=== PATIENT | male | born 1960 | race Caucasian/White ===

== ENCOUNTER → 2016-03-03 | Outpatient (CLI) | payer OTHER ==
[2016-03-03 07:21] LABS: ALBUMIN 3.6 GM/DL (3.2-5.2); ALBUMIN/GLOBULIN RATIO 1.16 (1.00-1.93); ALKALINE PHOSPHATASE 75 U/L (45-117); ALT/SGPT 50 U/L (12-78); ANION GAP 8 MEQ/L (8-16); AST/SGOT 32 U/L (15-37); BILIRUBIN,TOTAL 0.3 MG/DL (0.2-1.0); BLOOD UREA NITROGEN 13 MG/DL (7-18); CALCIUM LEVEL 8.5 MG/DL (8.5-10.1); CARBON DIOXIDE LEVEL 27 MEQ/L (21-32); CHLORIDE LEVEL 108 MEQ/L (98-107); CHOLESTEROL LEVEL 189 MG/DL (<200); CREATININE FOR GFR 0.96 MG/DL (0.70-1.30); GLOMERULAR FILTRATION RATE > 60.0 (>56); GLUCOSE, FASTING 159 MG/DL (70-105); POTASSIUM SERUM 4.2 MEQ/L (3.5-5.1); SODIUM LEVEL 143 MEQ/L (136-145); TOTAL PROTEIN 6.7 GM/DL (6.4-8.2); TRIGLYCERIDES LEVEL 247 MG/DL (<150)
== END ==
LOC: M LAB 06:08
PROVIDERS: ATTEND Family Medicine
DX: R73.01 Impaired fasting glucose (principal)

== ENCOUNTER → 2016-09-02 | Outpatient (CLI) | payer OTHER ==
[2016-09-02 07:26] LABS: ALBUMIN 3.6 GM/DL (3.2-5.2); ALBUMIN/GLOBULIN RATIO 1.06 (1.00-1.93); ALKALINE PHOSPHATASE 74 U/L (45-117); ALT/SGPT 38 U/L (12-78); ANION GAP 7 MEQ/L (8-16); AST/SGOT 24 U/L (15-37); BILIRUBIN,TOTAL 0.4 MG/DL (0.2-1.0); BLOOD UREA NITROGEN 13 MG/DL (7-18); CALCIUM LEVEL 8.9 MG/DL (8.5-10.1); CARBON DIOXIDE LEVEL 27 MEQ/L (21-32); CHLORIDE LEVEL 107 MEQ/L (98-107); CHOLESTEROL LEVEL 179 MG/DL (<200); CREATININE FOR GFR 0.98 MG/DL (0.70-1.30); GLOMERULAR FILTRATION RATE > 60.0 (>56); GLUCOSE, FASTING 158 MG/DL (70-105); POTASSIUM SERUM 4.1 MEQ/L (3.5-5.1); SODIUM LEVEL 141 MEQ/L (136-145); TRIGLYCERIDES LEVEL 368 MG/DL (<150)
== END ==
LOC: M LAB 06:08
PROVIDERS: ATTEND Family Medicine
DX: E78.5 Hyperlipidemia, unspecified (principal); R73.01 Impaired fasting glucose; R31.29 Other microscopic hematuria

== ENCOUNTER → 2017-02-01 | Outpatient (CLI) | payer OTHER ==
[2017-02-01 07:21] LABS: ALBUMIN 3.8 GM/DL (3.2-5.2); ALBUMIN/GLOBULIN RATIO 1.09 (1.00-1.93); ALKALINE PHOSPHATASE 72 U/L (45-117); ALT/SGPT 39 U/L (12-78); ANION GAP 7 MEQ/L (8-16); AST/SGOT 24 U/L (7-37); BILIRUBIN,TOTAL 0.3 MG/DL (0.2-1.0); BLOOD UREA NITROGEN 11 MG/DL (7-18); CALCIUM LEVEL 9.4 MG/DL (8.5-10.1); CARBON DIOXIDE LEVEL 28 MEQ/L (21-32); CHLORIDE LEVEL 108 MEQ/L (98-107); CREATININE FOR GFR 0.96 MG/DL (0.70-1.30); FREE T4 1.03 NG/DL (0.76-1.46); GLOMERULAR FILTRATION RATE > 60.0 (>56); GLUCOSE, FASTING 147 MG/DL (70-105); POTASSIUM SERUM 4.5 MEQ/L (3.5-5.1); SODIUM LEVEL 143 MEQ/L (136-145); TOTAL PROTEIN 7.3 GM/DL (6.4-8.2)
== END ==
LOC: M LAB 06:06
PROVIDERS: ATTEND Family Medicine
DX: I10 Essential (primary) hypertension (principal); E78.5 Hyperlipidemia, unspecified; R73.01 Impaired fasting glucose; Z12.5 Encounter for screening for malignant neoplasm of prostate
CPT/HCPCS: 36415; 80053; 83036; 84439; 84443; G0103

== ENCOUNTER 2017-03-22 07:19 | Emergency (ER) | payer OTHER ==
[2017-03-22] MEDS ORDERED: KETOROLAC 60 MG/2 ML VIAL (J1885) IM (07:45)
[2017-03-22] MEDS: KETOROLAC 30 MG/ML VIAL (J1885) IM (08:00)
== END 2017-03-22 08:46 | disposition home or self-care (01) ==
LOC: M ED 07:19
DX: M43.06 Spondylolysis, lumbar region (principal); M25.551 Pain in right hip; M54.5 Low back pain; F17.200 Nicotine dependence, unspecified, uncomplicated; E11.9 Type 2 diabetes mellitus without complications
CPT/HCPCS: J1885

== ENCOUNTER → 2017-04-29 | Outpatient (CLI) | payer OTHER | LOC: M RAD 10:53 | DX: M51.26 Other intervertebral disc displacement, lumbar region (principal); M51.27 Other intervertebral disc displacement, lumbosacral region; M48.061 Spinal stenosis, lumbar region without neurogenic claudication | CPT/HCPCS: 72148 ==

== ENCOUNTER → 2017-08-05 | Outpatient (REF) | payer OTHER ==
[2017-08-05 11:04] LABS: PLATELET COUNT, AUTOMATED 253 10^3/uL (150-450)
[2017-08-05 11:10] LABS: COLLAGEN EPINEPHRINE 97 SECONDS (74-162)
[2017-08-05 11:16] LABS: INR 0.94; PROTHROMBIN TIME 12.6 SECONDS (12.4-14.5)
[2017-08-05 11:17] LABS: PARTIAL THROMBOPLASTIN TIME 28.6 SECONDS (26.8-37.9)
== END ==
LOC: M LABDRAW1 10:30
DX: M48.061 Spinal stenosis, lumbar region without neurogenic claudication (principal)

== ENCOUNTER → 2017-08-23 | Outpatient (REF) | LOC: M SMT 10:05 | DX: Z02.71 Encounter for disability determination (principal) ==

== ENCOUNTER → 2017-09-02 | Outpatient (CLI) | payer OTHER ==
[2017-09-02 10:13] LABS: ESTIMATED AVERAGE GLUCOSE 128 MG/DL (60-110); HEMOGLOBIN A1c 6.1 %
[2017-09-02 10:26] LABS: ALBUMIN 3.8 GM/DL (3.2-5.2); ALBUMIN/GLOBULIN RATIO 1.12 (1.00-1.93); ALKALINE PHOSPHATASE 63 U/L (45-117); ALT/SGPT 31 U/L (12-78); ANION GAP 8 MEQ/L (8-16); AST/SGOT 21 U/L (7-37); BILIRUBIN,TOTAL 0.4 MG/DL (0.2-1.0); BLOOD UREA NITROGEN 13 MG/DL (7-18); CALCIUM LEVEL 8.9 MG/DL (8.5-10.1); CARBON DIOXIDE LEVEL 26 MEQ/L (21-32); CHLORIDE LEVEL 107 MEQ/L (98-107); CREATININE FOR GFR 1.09 MG/DL (0.70-1.30); GLOMERULAR FILTRATION RATE > 60.0 (>56); GLUCOSE, FASTING 110 MG/DL (70-100); SODIUM LEVEL 141 MEQ/L (136-145); TOTAL PROTEIN 7.2 GM/DL (6.4-8.2)
== END ==
LOC: M LAB 08:41
DX: I10 Essential (primary) hypertension (principal)
CPT/HCPCS: 80053

== ENCOUNTER → 2018-02-01 | Outpatient (REF) | payer OTHER ==
[2018-02-01 12:18] LABS: ALBUMIN/GLOBULIN RATIO 1.33 (1.00-1.93); ALKALINE PHOSPHATASE 59 U/L (45-117); ALT/SGPT 34 U/L (12-78); ANION GAP 5 MEQ/L (8-16); AST/SGOT 23 U/L (7-37); BILIRUBIN,TOTAL 0.3 MG/DL (0.2-1.0); BLOOD UREA NITROGEN 12 MG/DL (7-18); C REACTIVE PROTEIN QUANTITATIV < 0.30 MG/DL (0.00-0.30); CALCIUM LEVEL 8.8 MG/DL (8.5-10.1); CARBON DIOXIDE LEVEL 27 MEQ/L (21-32); CHLORIDE LEVEL 108 MEQ/L (98-107); CHOLESTEROL LEVEL 166 MG/DL (<200); CHOLESTEROL RISK RATIO 3.952 (<5); CREATININE FOR GFR 0.91 MG/DL (0.70-1.30); GLOMERULAR FILTRATION RATE > 60.0 (>56); GLUCOSE, FASTING 109 MG/DL (70-100); HDL CHOLESTEROL 42 MG/DL (>40); LDL CHOLESTEROL 105 MG/DL (<100); NON-HDL-C 124 MG/DL; POTASSIUM SERUM 4.8 MEQ/L (3.5-5.1); PSA SCREENING 0.4 NG/ML (< 4.0); SODIUM LEVEL 140 MEQ/L (136-145); TRIGLYCERIDES LEVEL 96 MG/DL (<150)
[2018-02-01 13:15] LABS: ESTIMATED AVERAGE GLUCOSE 131 MG/DL (60-110); HEMOGLOBIN A1c 6.2 %
== END ==
LOC: M SFHCPLAZ 09:00
DX: I10 Essential (primary) hypertension (principal); E78.5 Hyperlipidemia, unspecified; E11.9 Type 2 diabetes mellitus without complications; Z12.5 Encounter for screening for malignant neoplasm of prostate

== ENCOUNTER → 2018-07-26 | Outpatient (REF) | payer OTHER ==
[~2018-07-26] MED LIST: METF750T; MOBI4TAB PO; ZANA4TAB PO
[2018-07-26 11:11] LABS: APPEARANCE, URINE CLEAR (CLEAR); BACTERIA, URINE AUTO NEGATIVE (NEGATIVE); BILIRUBIN, URINE AUTO NEGATIVE (NEGATIVE); BLOOD, URINE BLOOD 2+ (NEGATIVE); COLOR, URINE YELLOW (YELLOW); GLUCOSE, URINE (UA) AUTO NEGATIVE (NEGATIVE); KETONE, URINE AUTO NEGATIVE (NEGATIVE); LEUKOCYTE ESTERASE, URINE AUTO NEGATIVE (NEGATIVE); MUCUS, URINE SMALL (NEGATIVE); NITRITE, URINE AUTO NEGATIVE (NEGATIVE); PROTEIN, URINE AUTO NEGATIVE (NEGATIVE); RBC, URINE AUTO 3 /HPF (0-3); SPECIFIC GRAVITY URINE AUTO 1.018 (1.002-1.035); SQUAMOUS EPITHELIAL CELL UR AU 0 /HPF (0-6); UROBILINOGEN, URINE AUTO 0.2 mg/dL (0.0-2.0); WBC, URINE AUTO 1 /HPF (0-3)
[2018-07-26 11:14] LABS: BASO % 0.5 % (0.0-1.0); EOS # 0.1 10^3/uL (0.0-0.50); EOS % 1.6 % (0.0-3.0); HEMOGLOBIN 17.8 g/dl (13.5-17.5); LYMPH # 1.8 10^3/uL (1.5-4.5); LYMPH % 22.9 % (24.0-44.0); MEAN CORPUSCULAR HEMOGLOBIN 33.7 pg (27.0-33.0); MEAN CORPUSCULAR HGB CONC 34.2 g/dl (32.0-36.5); MEAN CORPUSCULAR VOLUME 98.5 fl (80.0-96.0); MONO # 0.6 10^3/uL (0.0-0.8); MONO % 7.6 % (0.0-5.0); NEUTROPHILS # 5.4 10^3/uL (1.8-7.7); NEUTROPHILS % 67.2 % (36.0-66.0); PLATELET COUNT, AUTOMATED 214 10^3/uL (150-450); RED BLOOD COUNT 5.28 10^6/uL (4.30-6.10)
[2018-07-26 11:27] LABS: ALBUMIN 3.9 GM/DL (3.2-5.2); ALT/SGPT 30 U/L (12-78); BILIRUBIN,TOTAL 0.4 MG/DL (0.2-1.0); BLOOD UREA NITROGEN 9 MG/DL (7-18); CALCIUM LEVEL 8.6 MG/DL (8.5-10.1); CARBON DIOXIDE LEVEL 25 MEQ/L (21-32); CHLORIDE LEVEL 108 MEQ/L (98-107); CHOLESTEROL LEVEL 94 MG/DL (<200); CHOLESTEROL RISK RATIO 2.238 (<5); CPK CREATINE PHOSPHOKINASE 307 U/L (39-308); CREATININE FOR GFR 0.86 MG/DL (0.70-1.30); FREE T4 1.05 NG/DL (0.76-1.46); GLOMERULAR FILTRATION RATE > 60.0 (>56); GLUCOSE, FASTING 120 MG/DL (70-100); HDL CHOLESTEROL 42 MG/DL (>40); LDL CHOLESTEROL 31 MG/DL (<100); NON-HDL-C 52 MG/DL; POTASSIUM SERUM 4.3 MEQ/L (3.5-5.1); SODIUM LEVEL 142 MEQ/L (136-145); TOTAL PROTEIN 7.3 GM/DL (6.4-8.2); TRIGLYCERIDES LEVEL 105 MG/DL (<150)
[2018-07-26 11:38] LABS: MALB URINE SIEMENS 35.4 MG/L; MAU/CREAT RATIO 22.2 MCG/MG (0.0-30.0)
[2018-07-26 11:52] LABS: HEMOGLOBIN A1c 6.1 %
== END ==
LOC: M SFHCPLAZ 07:54
PROVIDERS: ATTEND Family Medicine
DX: I10 Essential (primary) hypertension (principal); E78.5 Hyperlipidemia, unspecified; E11.9 Type 2 diabetes mellitus without complications; R31.29 Other microscopic hematuria

== ENCOUNTER → 2018-12-27 | Outpatient (REF) | payer OTHER ==
[~2018-12-27] MED LIST changes: -METF750T; +METF750T36
[2018-12-27 11:01] LABS: ALBUMIN 3.8 GM/DL (3.2-5.2); ALT/SGPT 28 U/L (12-78); BILIRUBIN,TOTAL 0.4 MG/DL (0.2-1.0); BLOOD UREA NITROGEN 11 MG/DL (7-18); CALCIUM LEVEL 9.2 MG/DL (8.5-10.1); CARBON DIOXIDE LEVEL 29 MEQ/L (21-32); CHLORIDE LEVEL 108 MEQ/L (98-107); CREATININE FOR GFR 0.92 MG/DL (0.70-1.30); FERRITIN 136 NG/ML (26-388); GLOMERULAR FILTRATION RATE > 60.0 (>56); GLUCOSE, FASTING 103 MG/DL (70-100); IRON (FE) 46 UG/DL (65-175); PERCENT SATURATION 15.1 % (19.7-50.0); POTASSIUM SERUM 4.3 MEQ/L (3.5-5.1); SODIUM LEVEL 140 MEQ/L (136-145); TOTAL IRON BINDING CAPACITY 304 UG/DL (250-450); TOTAL PROTEIN 6.9 GM/DL (6.4-8.2)
[2018-12-27 11:12] LABS: HEMOGLOBIN A1c 5.8 %
[2018-12-27 11:20] LABS: BASO # 0.1 10^3/uL (0.0-0.2); BASO % 0.8 % (0.0-1.0); EOS # 0.2 10^3/uL (0.0-0.5); EOS % 2.1 % (0.0-3.0); HEMATOCRIT 48.8 % (42.0-52.0); HEMOGLOBIN 16.6 g/dl (13.5-17.5); LYMPH # 1.9 10^3/uL (1.5-5.0); MEAN CORPUSCULAR HEMOGLOBIN 33.7 pg (27.0-33.0); MEAN CORPUSCULAR VOLUME 99.2 fl (80.0-96.0); MONO # 0.7 10^3/uL (0.0-0.8); MONO % 8.6 % (0.0-5.0); NEUTROPHILS # 4.8 10^3/uL (1.5-8.5); NEUTROPHILS % 62.7 % (36.0-66.0); PLATELET COUNT, AUTOMATED 195 10^3/uL (150-450); RED BLOOD COUNT 4.92 10^6/uL (4.30-6.10); WHITE BLOOD COUNT 7.6 10^3/uL (4.0-10.0)
== END ==
LOC: M SFHCPLAZ 07:57
PROVIDERS: ATTEND Family Medicine
DX: Z12.5 Encounter for screening for malignant neoplasm of prostate (principal); I10 Essential (primary) hypertension; E11.9 Type 2 diabetes mellitus without complications
CPT/HCPCS: 36415; 80053; 82668; 82728; 83036; 83550; 85025; 85046; G0103

== ENCOUNTER → 2019-06-11 | Outpatient (REF) | payer OTHER ==
[2019-06-11 14:14] LABS: APPEARANCE, URINE CLEAR (CLEAR); BACTERIA, URINE AUTO NEGATIVE (NEGATIVE); BILIRUBIN, URINE AUTO NEGATIVE (NEGATIVE); BLOOD, URINE BLOOD 2+ (NEGATIVE); COLOR, URINE YELLOW (YELLOW); GLUCOSE, URINE (UA) AUTO NEGATIVE (NEGATIVE); KETONE, URINE AUTO NEGATIVE (NEGATIVE); LEUKOCYTE ESTERASE, URINE AUTO NEGATIVE (NEGATIVE); NITRITE, URINE AUTO NEGATIVE (NEGATIVE); PROTEIN, URINE AUTO NEGATIVE (NEGATIVE); RBC, URINE AUTO 0 /HPF (0-3); SPECIFIC GRAVITY URINE AUTO 1.017 (1.002-1.035); SQUAMOUS EPITHELIAL CELL UR AU 0 /HPF (0-6); UROBILINOGEN, URINE AUTO 0.2 mg/dL (0.0-2.0); WBC, URINE AUTO 1 /HPF (0-3)
[2019-06-11 14:28] LABS: CHOLESTEROL RISK RATIO 3.1 (<5); FREE T4 1.03 NG/DL (0.76-1.46); THYROID STIMULATING HORMONE 2.64 uIU/ML (0.358-3.740); TOTAL PROTEIN 6.8 GM/DL (6.4-8.2)
[2019-06-11 14:35] LABS: HEMOGLOBIN A1c 6.5 %
[2019-06-11 14:56] LABS: MALB URINE SIEMENS 14.2 MG/L; MAU/CREAT RATIO 8.7 MCG/MG (0.0-30.0)
== END ==
LOC: M LABDRAW1 13:35
PROVIDERS: ATTEND Family Medicine
DX: D75.1 Secondary polycythemia (principal); E11.9 Type 2 diabetes mellitus without complications

== ENCOUNTER → 2019-11-23 | Outpatient (CLI) | payer MEDICARE ==
[2019-11-23 11:41] LABS: ALBUMIN 3.8 GM/DL (3.2-5.2); ALT/SGPT 30 U/L (12-78); BILIRUBIN,TOTAL 0.3 MG/DL (0.2-1.0); BLOOD UREA NITROGEN 12 MG/DL (7-18); CALCIUM LEVEL 9.1 MG/DL (8.5-10.1); CARBON DIOXIDE LEVEL 27 MEQ/L (21-32); CHLORIDE LEVEL 109 MEQ/L (98-107); CHOLESTEROL LEVEL 110 MG/DL (<200); CHOLESTEROL RISK RATIO 2.244 (<5); CPK CREATINE PHOSPHOKINASE 251 U/L (39-308); CREATININE FOR GFR 0.86 MG/DL (0.70-1.30); GLOMERULAR FILTRATION RATE > 60.0 (>56); GLUCOSE, FASTING 119 MG/DL (70-100); HDL CHOLESTEROL 49 MG/DL (>40); LDL CHOLESTEROL 31 MG/DL (<100); NON-HDL-C 61 MG/DL; POTASSIUM SERUM 4.6 MEQ/L (3.5-5.1); SODIUM LEVEL 138 MEQ/L (136-145); TOTAL PROTEIN 7.3 GM/DL (6.4-8.2); TRIGLYCERIDES LEVEL 152 MG/DL (<150)
[2019-11-23 11:53] LABS: HEMOGLOBIN A1c 5.7 %
== END ==
LOC: M PLALAB 08:20
PROVIDERS: ATTEND Family Medicine
DX: R73.01 Impaired fasting glucose (principal); E78.5 Hyperlipidemia, unspecified; Z12.5 Encounter for screening for malignant neoplasm of prostate
CPT/HCPCS: 36415; 80053; 80061; 82550; 83036; 83525; G0103

== ENCOUNTER → 2020-04-28 | Outpatient (REF) | payer MEDICARE ==
[2020-04-28 10:39] LABS: BASO # 0.1 10^3/uL (0.0-0.2); BASO % 0.6 % (0.0-1.0); EOS # 0.2 10^3/uL (0.0-0.5); HEMATOCRIT 53.5 % (42.0-52.0); LYMPH # 2.4 10^3/uL (1.5-5.0); LYMPH % 28.3 % (24.0-44.0); MEAN CORPUSCULAR HEMOGLOBIN 33.3 pg (27.0-33.0); MEAN CORPUSCULAR HGB CONC 33.6 g/dl (32.0-36.5); MEAN CORPUSCULAR VOLUME 99.1 fl (80.0-96.0); MONO # 0.7 10^3/uL (0.0-0.8); NEUTROPHILS # 5.2 10^3/uL (1.5-8.5); NEUTROPHILS % 60.8 % (36.0-66.0); PLATELET COUNT, AUTOMATED 200 10^3/uL (150-450); WHITE BLOOD COUNT 8.6 10^3/uL (4.0-10.0)
[2020-04-28 11:09] LABS: FREE T4 0.94 NG/DL (0.76-1.46); THYROID STIMULATING HORMONE 3.24 uIU/ML (0.358-3.740)
== END ==
LOC: M PLALAB 08:15
PROVIDERS: ATTEND Family Medicine
DX: D75.1 Secondary polycythemia (principal); E78.5 Hyperlipidemia, unspecified

== ENCOUNTER → 2020-07-09 | Outpatient (CLI) | payer MEDICARE ==
--- NOTE | 2020-07-10 13:36 | SLEEPHOME ---
DIAGNOSTIC HOME SLEEP STUDY DATE: 07/09/2020 ORDERED BY: Les Zheng M.D. Diagnostic home sleep testing was performed due to concern for the obstructive sleep apnea syndrome. For testing, a NIOX T3 respiratory monitoring device was used. Continuous record was made of pulse, oxygen saturation, air flow, chest and abdominal strain, and body position. 9 hours and 59 minutes of data were reviewed. There were 6 hours and 52 minutes marked as time in bed. During the interval marked time in bed, there were 133 respiratory events identified of 10 seconds in duration or greater for a respiratory event index 19.4. The events were obstructive. Baseline pulse rate 60. Pulse rate range 47 to 141. Baseline saturation was 93%. Saturations fell to 80%. Testing was performed in both the supine and non-supine positions. IMPRESSION: IMPRESSION: Abnormal home sleep testing, with repetitive respiratory events and oxygen desaturations to 80% with a respiratory event index of 19.4, is consistent with the obstructive sleep apnea syndrome. RECOMMENDATION: The patient should be encouraged to undergo formal sleep evaluation.
== END ==
LOC: M SLEEP HO 09:51
PROVIDERS: ATTEND Family Medicine
DX: G47.33 Obstructive sleep apnea (adult) (pediatric) (principal)

== ENCOUNTER → 2020-09-18 | Outpatient (CLI) | payer MEDICARE ==
--- NOTE | 2020-09-19 12:50 | SLEEPCENT ---
DATE: 09/18/2020 ORDERED BY: FIDEL Hess Nocturnal polysomnography was performed for evaluation of sleep physiology in this patient with a clinical diagnosis of obstructive sleep apnea syndrome confirmed by home testing. Seven hours and 28 minutes of data were reviewed. There were 355 minutes of sleep identified. Sleep latency was mildly prolonged at 27 minutes. REM latency was also mildly prolonged at 134 minutes. Sleep architecture was fair with some fragmentation. Two REM cycles were noted. Overall sleep efficiency was 88.5%. The electrocardiogram showed a supraventricular rhythm with irregularity. Most of the beats appeared to be sinus. Ectopic atrial rhythm is expected for parts of the study. EEG showed essentially normal waveforms for wake and sleep. There were 70 respiratory events identified of 10 seconds in duration or greater for an apnea-hypopnea index of 11.8. The events were obstructive, not exclusive to sleep stage nor posture. Arousals from respiratory events occurred 5.1 times per hour, and oxygen desaturations were seen into the 80s. There was some activity in the limb leads but no trains of 30 events. Limb movement arousal index 3.5. IMPRESSIONS: Obstructive sleep apnea syndrome (G47.33). Apnea-hypopnea index 11.8. RECOMMENDATION: The patient should be encouraged to return to [facility]. In the interim, alcohol and sedative avoidance should be practiced and caution exercised during the operation of motor vehicles. cc: DNANY VELAZQUEZ MD
== END ==
LOC: M SLEEP 20:18
PROVIDERS: ATTEND Nurse Practitioner Family
DX: G47.33 Obstructive sleep apnea (adult) (pediatric) (principal)

== ENCOUNTER → 2020-11-05 | Outpatient (CLI) | payer MEDICARE ==
[2020-11-05 12:59] LABS: BASO # 0.1 10^3/uL (0.0-0.2); BASO % 0.6 % (0.0-1.0); EOS # 0.2 10^3/uL (0.0-0.5); EOS % 2.2 % (0.0-3.0); HEMATOCRIT 51.8 % (42.0-52.0); HEMOGLOBIN 17.7 g/dl (13.5-17.5); LYMPH % 25.9 % (24.0-44.0); MEAN CORPUSCULAR HEMOGLOBIN 33.8 pg (27.0-33.0); MEAN CORPUSCULAR HGB CONC 34.2 g/dl (32.0-36.5); MONO # 0.7 10^3/uL (0.0-0.8); MONO % 8.4 % (2.0-8.0); NEUTROPHILS # 4.8 10^3/uL (1.5-8.5); NEUTROPHILS % 62.6 % (36.0-66.0); PLATELET COUNT, AUTOMATED 220 10^3/uL (150-450); RED BLOOD COUNT 5.23 10^6/uL (4.30-6.10); WHITE BLOOD COUNT 7.7 10^3/uL (4.0-10.0)
[2020-11-05 14:24] LABS: HEMOGLOBIN A1c 5.9 %
[2020-11-06 12:57] LABS: JAK2 MUTATIONS FOR PATH SENDOU See Pathology Report
[2020-11-07 00:07] LABS: ERYTHROPOIETIN 8.2 mIU/mL (2.6-18.5); INSULIN LEVEL 19.7 uIU/mL (2.6-24.9)
== END ==
LOC: M PLALAB 10-31 09:46
PROVIDERS: ATTEND Family Medicine
DX: D75.1 Secondary polycythemia (principal); E11.9 Type 2 diabetes mellitus without complications; E78.5 Hyperlipidemia, unspecified; Z12.5 Encounter for screening for malignant neoplasm of prostate; R31.29 Other microscopic hematuria
CPT/HCPCS: 36415; 82172; 82550; 82668; 82728; 83010; 83036; 83525; 83883; 85025; 88108; 88300; G0103

== ENCOUNTER → 2020-11-13 | Outpatient (CLI) | payer MEDICARE ==
--- NOTE | 2020-11-17 15:43 | SLEEPCENT ---
DATE: 11/13/2020 ORDERED BY: FIDEL Hess Nocturnal polysomnography was performed for the titration of pressure therapy in this patient with obstructive sleep apnea syndrome, apnea-hypopnea index 11.8. For testing, a [employer]Med Airfit F20 full face mask of large size was used, 4 cm of water pressure were applied to the circuit and the lights were extinguished. Seven hours and 16 minutes of data were reviewed. There were 359 minutes of sleep identified. Sleep latency was normal at 10.5 minutes. REM latency was normal at 90 minutes. Sleep architecture was fair with two REM cycles. Overall sleep efficiency was 85.5%. The electrocardiogram showed a sinus rhythm with an average heart rate of 63 beats per minute. EEG showed normal waveforms for wake and sleep. Respiratory events were fully palliated with CPAP at a pressure of 10. There was some activity in the limb leads. Limb movement arousal index on this occasion was 5.2. IMPRESSION: Obstructive sleep apnea syndrome (G47.33). RECOMMENDATION: Nightly use of pressure therapy 10 cm of water. cc: DANNY VELAZQUEZ MD
== END ==
LOC: M SLEEP 20:00
PROVIDERS: ATTEND Nurse Practitioner Family
DX: G47.33 Obstructive sleep apnea (adult) (pediatric) (principal)

== ENCOUNTER → 2021-04-28 | Outpatient (CLI) | payer MEDICARE ==
[2021-04-28 11:19] LABS: BASO # 0.1 10^3/uL (0.0-0.2); BASO % 0.7 % (0.0-1.0); EOS # 0.1 10^3/uL (0.0-0.5); EOS % 1.9 % (0.0-3.0); HEMATOCRIT 52.4 % (42.0-52.0); HEMOGLOBIN 17.4 g/dl (13.5-17.5); LYMPH % 27.2 % (24.0-44.0); MEAN CORPUSCULAR HEMOGLOBIN 33.2 pg (27.0-33.0); MEAN CORPUSCULAR HGB CONC 33.2 g/dl (32.0-36.5); MONO # 0.6 10^3/uL (0.0-0.8); MONO % 8.7 % (2.0-8.0); NEUTROPHILS # 4.5 10^3/uL (1.5-8.5); NEUTROPHILS % 60.7 % (36.0-66.0); PLATELET COUNT, AUTOMATED 218 10^3/uL (150-450); RED BLOOD COUNT 5.24 10^6/uL (4.30-6.10); WHITE BLOOD COUNT 7.4 10^3/uL (4.0-10.0)
[2021-04-28 12:16] LABS: ALT/SGPT 21 U/L (12-78); BILIRUBIN,TOTAL 0.4 MG/DL (0.2-1.0); BLOOD UREA NITROGEN 8 MG/DL (7-18); CALCIUM LEVEL 9.2 MG/DL (8.5-10.1); CARBON DIOXIDE LEVEL 29 MEQ/L (21-32); CHLORIDE LEVEL 108 MEQ/L (98-107); CHOLESTEROL LEVEL 121 MG/DL (<200); CREATININE FOR GFR 0.91 MG/DL (0.70-1.30); FERRITIN 111 NG/ML (26-388); FREE T4 0.95 NG/DL (0.76-1.46); GLOMERULAR FILTRATION RATE > 60.0 (>56); GLUCOSE, FASTING 123 MG/DL (70-100); HDL CHOLESTEROL 48 MG/DL (>40); IRON (FE) 82 UG/DL (65-175); LDL CHOLESTEROL 13 MG/DL (<100); NON-HDL-C 73 MG/DL; NT-PRO BNP 76 PG/ML (<125); PERCENT SATURATION 26.2 % (19.7-50.0); POTASSIUM SERUM 4.8 MEQ/L (3.5-5.1); SODIUM LEVEL 140 MEQ/L (136-145); THYROID PEROXIDASE ANTIBODY 45.4 U/ML (<60.0); TOTAL IRON BINDING CAPACITY 313 UG/DL (250-450); TRIGLYCERIDES LEVEL 300 MG/DL (<150)
[2021-04-28 12:53] LABS: HEMOGLOBIN A1c 6.2 %
== END ==
LOC: M PLALAB 09:44
PROVIDERS: ATTEND Family Medicine
DX: E78.5 Hyperlipidemia, unspecified (principal); I10 Essential (primary) hypertension; E11.9 Type 2 diabetes mellitus without complications; D75.1 Secondary polycythemia

== ENCOUNTER → 2021-10-12 | Outpatient (CLI) | payer MEDICARE ==
[2021-10-12 11:38] LABS: INR 0.93; PROTHROMBIN TIME 12.9 SECONDS (12.7-14.5)
[2021-10-12 11:39] LABS: PARTIAL THROMBOPLASTIN TIME 31.4 SECONDS (25.9-37.0)
[2021-10-12 11:43] LABS: HEMOGLOBIN A1c 6.1 %
[2021-10-12 12:15] LABS: ALBUMIN 4.1 GM/DL (3.2-5.2); ALT/SGPT 30 U/L (12-78); BILIRUBIN,TOTAL 0.4 MG/DL (0.2-1.0); BLOOD UREA NITROGEN 10 MG/DL (7-18); CALCIUM LEVEL 9.6 MG/DL (8.5-10.1); CARBON DIOXIDE LEVEL 26 MEQ/L (21-32); CHLORIDE LEVEL 108 MEQ/L (98-107); CREATININE FOR GFR 0.98 MG/DL (0.70-1.30); GLOMERULAR FILTRATION RATE > 60.0 (>56); GLUCOSE, FASTING 124 MG/DL (70-100); NT-PRO BNP 79 PG/ML (<125); POTASSIUM SERUM 4.5 MEQ/L (3.5-5.1); SODIUM LEVEL 137 MEQ/L (136-145); TOTAL PROTEIN 7.2 GM/DL (6.4-8.2)
== END ==
LOC: M PLALAB 08:41
PROVIDERS: ATTEND Family Medicine
DX: K76.0 Fatty (change of) liver, not elsewhere classified (principal); I10 Essential (primary) hypertension; E11.9 Type 2 diabetes mellitus without complications; Z12.5 Encounter for screening for malignant neoplasm of prostate
CPT/HCPCS: 36415; 80053; 82105; 83036; 83525; 83880; 85610; 85730; G0103

== ENCOUNTER → 2021-11-13 | Outpatient (CLI) | payer MEDICARE | LOC: M RAD 08:58 | PROVIDERS: ATTEND Family Medicine | DX: R31.29 Other microscopic hematuria (principal); I10 Essential (primary) hypertension ==

== ENCOUNTER → 2022-03-23 | Outpatient (REF) | payer MEDICARE ==
[2022-03-23 14:21] LABS: BASO # 0.1 10^3/uL (0.0-0.2); BASO % 0.7 % (0.0-1.0); EOS # 0.2 10^3/uL (0.0-0.5); EOS % 2.1 % (0.0-3.0); HEMATOCRIT 49.3 % (42.0-52.0); HEMOGLOBIN 16.4 g/dl (13.5-17.5); LYMPH # 1.8 10^3/uL (1.5-5.0); LYMPH % 23.8 % (24.0-44.0); MEAN CORPUSCULAR HEMOGLOBIN 33.5 pg (27.0-33.0); MEAN CORPUSCULAR HGB CONC 33.3 g/dl (32.0-36.5); MEAN CORPUSCULAR VOLUME 100.8 fl (80.0-96.0); MONO # 0.6 10^3/uL (0.0-0.8); MONO % 7.9 % (2.0-8.0); NEUTROPHILS % 65.1 % (36.0-66.0); PLATELET COUNT, AUTOMATED 206 10^3/uL (150-450); RED BLOOD COUNT 4.89 10^6/uL (4.30-6.10); WHITE BLOOD COUNT 7.6 10^3/uL (4.0-10.0)
[2022-03-23 14:24] LABS: APPEARANCE, URINE MANUAL CLEAR (CLEAR); BILIRUBIN, URINE MANUAL NEGATIVE (NEGATIVE); BLOOD URINE MANUAL POSITIVE (NEGATIVE); COLOR, URINE MANUAL YELLOW (YELLOW); GLUCOSE, URINE (UA) MANUAL NEGATIVE (NEGATIVE); KETONE, URINE MANUAL NEGATIVE (NEGATIVE); LEUKOCYTE ESTERASE, URINE MAN NEGATIVE (NEGATIVE); NITRITE, URINE MANUAL NEGATIVE (NEGATIVE); PROTEIN, URINE MANUAL NEGATIVE (NEGATIVE); UROBILINOGEN, URINE MANUAL NORMAL (NORMAL)
[2022-03-23 14:31] LABS: BACTERIA, URINE NONE SEEN; CALCIUM OXALATE CRYSTALS,URINE SMALL AMOUNT /hpf; HYALINE CAST, URINE NONE SEEN /lpf (0-1); RBC, URINE 0-1 /hpf (0-3); SQUAMOUS EPITHELIAL CELL URINE SMALL AMOUNT /hpf (SMALL AMT); WBC, URINE NONE SEEN /hpf (0-3)
[2022-03-23 14:55] LABS: FERRITIN 100.8 NG/ML (10.5-307.3)
[2022-03-23 14:56] LABS: ALBUMIN 4.2 G/DL (3.2-5.2); ALKALINE PHOSPHATASE 62 U/L (46-116); ALT/SGPT 22 U/L (7.0-40); AST/SGOT 24 U/L (<34); BILIRUBIN,TOTAL 0.4 MG/DL (0.3-1.2); BLOOD UREA NITROGEN 14 MG/DL (9-23); CALCIUM LEVEL 9.5 MG/DL (8.3-10.6); CARBON DIOXIDE LEVEL 27 MMOL/L (20-31); CHLORIDE LEVEL 106 MMOL/L (98-107); CHOLESTEROL LEVEL 109 MG/DL (<200); CHOLESTEROL RISK RATIO 2.61 (<5); CREATININE FOR GFR 0.97 MG/DL (0.70-1.30); GLOMERULAR FILTRATION RATE > 60.0 (>49); GLUCOSE, FASTING 111 MG/DL (74-106); HDL CHOLESTEROL 41.7 MG/DL (>40); NON-HDL-C 67 MG/DL; POTASSIUM SERUM 4.8 MMOL/L (3.5-5.1); SODIUM LEVEL 140 MMOL/L (136-145); TOTAL PROTEIN 6.9 G/DL (5.7-8.2); TRIGLYCERIDES LEVEL 340 MG/DL (<150)
[2022-03-23 14:57] LABS: VITAMIN B12 LEVEL 521 PG/ML (211-911)
[2022-03-23 16:57] LABS: HEMOGLOBIN A1c 5.9 % (4.0-6.0)
[2022-03-25 04:07] LABS: APOLIPOPROTEIN B/A-1 RATIO 0.4 ratio (0.0-0.7); FREE KAPPA LIGHT CHAINS SERUM 42.9 mg/L (3.3-19.4); FREE LAMBDA LIGHT CHAINS SERUM 19.7 mg/L (5.7-26.3); INSULIN LEVEL 34.7 uIU/mL (2.6-24.9); KAPPA/LAMBDA RATIO SERUM 2.18 (0.26-1.65)
== END ==
LOC: M SFHCADAM 09:10
PROVIDERS: ATTEND Family Medicine
DX: D75.1 Secondary polycythemia (principal); E11.9 Type 2 diabetes mellitus without complications; R31.29 Other microscopic hematuria

== ENCOUNTER → 2022-08-27 | Outpatient (REF) | payer MEDICARE ==
[2022-08-27 13:40] LABS: BLOOD UREA NITROGEN 14 MG/DL (9-23); CREATININE FOR GFR 0.92 MG/DL (0.70-1.30); GLOMERULAR FILTRATION RATE > 60.0 (>49)
== END ==
LOC: M LABDRWAD 12:49
PROVIDERS: ATTEND Orthopaedic Surgery
DX: M51.36 Other intervertebral disc degeneration, lumbar region (principal)

== ENCOUNTER → 2022-12-14 | Outpatient (REF) | payer MEDICARE ==
[2022-12-14 14:01] LABS: BASO # 0.1 10^3/uL (0.0-0.2); BASO % 0.9 % (0.0-1.0); EOS # 0.2 10^3/uL (0.0-0.5); EOS % 2.4 % (0.0-3.0); HEMATOCRIT 46.2 % (42.0-52.0); HEMOGLOBIN 15.7 g/dl (13.5-17.5); LYMPH # 2.1 10^3/uL (1.5-5.0); LYMPH % 27.1 % (24.0-44.0); MEAN CORPUSCULAR HEMOGLOBIN 33.9 pg (27.0-33.0); MEAN CORPUSCULAR VOLUME 99.8 fl (80.0-96.0); MONO # 0.7 10^3/uL (0.0-0.8); NEUTROPHILS # 4.7 10^3/uL (1.5-8.5); NEUTROPHILS % 60.2 % (36.0-66.0); PLATELET COUNT, AUTOMATED 224 10^3/uL (150-450); RED BLOOD COUNT 4.63 10^6/uL (4.30-6.10); WHITE BLOOD COUNT 7.8 10^3/uL (4.0-10.0)
[2022-12-14 14:13] LABS: HEMOGLOBIN A1c 5.6 % (4.0-6.0)
== END ==
LOC: M SFHCADAM 09:38
PROVIDERS: ATTEND Family Medicine
DX: E11.9 Type 2 diabetes mellitus without complications (principal); D75.89 Other specified diseases of blood and blood-forming organs; D75.1 Secondary polycythemia; Z12.5 Encounter for screening for malignant neoplasm of prostate
CPT/HCPCS: 82784; 83036; 83525; 84155; 84165; 85025; 86334; G0103

== ENCOUNTER 2023-03-08 08:25 | Day surgery (SDC) | payer MEDICARE ==
[~2023-03-08] VITALS: Ht 185.4 cm; Wt 120.2 kg
[~2023-03-08 08:25] MED LIST changes: +ECOT81TA5 PO; +GABA800T4 PO; +LIDOCAINE 2% 100MG/5ML SDV (FOR ANES.) As Ordered ONE; -METF750T36; +METF750T36 PO; +NS 1,000 ML IV ONE; +ROSU20TA61 PO; +propofoL 200 MG/20 ML VIAL As Ordered ONE
[2023-03-08 09:58] VITALS: TEMP 97.8
[2023-03-08 10:10] VITALS: BP 117/62; O2SAT 97
== END 2023-03-08 10:16 | disposition home or self-care (01) ==
LOC: M OPP 08:25 → M SDC 08:25 → M OPP 10:16
PROVIDERS: ATTEND Internal Medicine Gastroenterology
DX: Z12.11 Encounter for screening for malignant neoplasm of colon (principal); K64.0 First degree hemorrhoids; F17.200 Nicotine dependence, unspecified, uncomplicated; E11.9 Type 2 diabetes mellitus without complications; G47.30 Sleep apnea, unspecified; Z99.89 Dependence on other enabling machines and devices; Z79.02 Long term (current) use of antithrombotics/antiplatelets; Z79.1 Long term (current) use of non-steroidal anti-inflammatories (NSAID); Z79.82 Long term (current) use of aspirin; Z79.84 Long term (current) use of oral hypoglycemic drugs

== ENCOUNTER → 2023-05-12 | Outpatient (REF) | payer MEDICARE ==
[~2023-05-12] MED LIST changes: -LIDOCAINE 2% 100MG/5ML SDV (FOR ANES.) As Ordered ONE; -NS 1,000 ML IV ONE; -propofoL 200 MG/20 ML VIAL As Ordered ONE
[2023-05-12 15:07] LABS: BASO # 0.1 10^3/uL (0.0-0.2); BASO % 0.8 % (0.0-1.0); EOS # 0.1 10^3/uL (0.0-0.5); EOS % 1.9 % (0.0-3.0); HEMOGLOBIN 16.2 g/dl (13.5-17.5); LYMPH # 1.7 10^3/uL (1.5-5.0); LYMPH % 26.2 % (24.0-44.0); MEAN CORPUSCULAR HEMOGLOBIN 33.6 pg (27.0-33.0); MEAN CORPUSCULAR HGB CONC 33.8 g/dl (32.0-36.5); MEAN CORPUSCULAR VOLUME 99.6 fl (80.0-96.0); MONO # 0.7 10^3/uL (0.0-0.8); MONO % 10.2 % (2.0-8.0); NEUTROPHILS # 3.9 10^3/uL (1.5-8.5); NEUTROPHILS % 60.6 % (36.0-66.0); PLATELET COUNT, AUTOMATED 191 10^3/uL (150-450); RED BLOOD COUNT 4.82 10^6/uL (4.30-6.10); WHITE BLOOD COUNT 6.4 10^3/uL (4.0-10.0)
[2023-05-12 15:17] LABS: ALBUMIN 4.1 G/DL (3.2-5.2); ALKALINE PHOSPHATASE 55 U/L (46-116); ALT/SGPT 30 U/L (7.0-40); AST/SGOT 29 U/L (<34); BILIRUBIN,TOTAL 0.6 MG/DL (0.3-1.2); BLOOD UREA NITROGEN 13 MG/DL (9-23); CALCIUM LEVEL 9.4 MG/DL (8.3-10.6); CARBON DIOXIDE LEVEL 29 MMOL/L (20-31); CHLORIDE LEVEL 107 MMOL/L (98-107); CHOLESTEROL LEVEL 112 MG/DL (<200); CREATININE FOR GFR 0.94 MG/DL (0.70-1.30); GLOMERULAR FILTRATION RATE > 60.0 (>49); GLUCOSE, FASTING 132 MG/DL (74-106); LDL CHOLESTEROL 38.2 MG/DL (<100); POTASSIUM SERUM 4.3 MMOL/L (3.5-5.1); SODIUM LEVEL 137 MMOL/L (136-145); TRIGLYCERIDES LEVEL 169 MG/DL (<150)
[2023-05-12 15:18] LABS: FREE T4 1.02 NG/DL (0.89-1.76); THYROID STIMULATING HORMONE 2.682 uIU/ML (0.55-4.78)
[2023-05-12 15:20] LABS: FERRITIN 81.3 NG/ML (10.5-307.3)
[2023-05-12 15:51] LABS: HEMOGLOBIN A1c 6.4 % (4.0-6.0)
[2023-05-15 17:06] LABS: INSULIN LEVEL 18.1 uIU/mL (2.6-24.9)
== END ==
LOC: M SFHCADAM 08:43
PROVIDERS: ATTEND Family Medicine
DX: K76.0 Fatty (change of) liver, not elsewhere classified (principal); D75.89 Other specified diseases of blood and blood-forming organs; E11.9 Type 2 diabetes mellitus without complications; E78.5 Hyperlipidemia, unspecified

== ENCOUNTER → 2023-06-02 | Outpatient (CLI) | payer MEDICARE | LOC: M RAD 09:34 | PROVIDERS: ATTEND Family Medicine | DX: K76.0 Fatty (change of) liver, not elsewhere classified (principal); N28.1 Cyst of kidney, acquired ==

== ENCOUNTER → 2023-06-28 | Outpatient (REF) | payer MEDICARE ==
[2023-06-28 14:29] LABS: BLOOD UREA NITROGEN 10 MG/DL (9-23); CREATININE FOR GFR 0.91 MG/DL (0.70-1.30); GLOMERULAR FILTRATION RATE > 60.0 (>49)
== END ==
LOC: M LABDRWAD 13:00
PROVIDERS: ATTEND Physician Assistant
DX: M47.896 Other spondylosis, lumbar region (principal); M51.16 Intervertebral disc disorders with radiculopathy, lumbar region

== ENCOUNTER → 2023-11-11 | Outpatient (REF) | payer MEDICARE ==
[~2023-11-11] MED LIST changes: +GABA-1635 PO; -GABA800T4 PO
[2023-11-11 14:16] LABS: BASO # 0.1 10^3/uL (0.0-0.2); BASO % 0.8 % (0.0-1.0); EOS # 0.1 10^3/uL (0.0-0.5); EOS % 2.1 % (0.0-3.0); HEMATOCRIT 45.6 % (42.0-52.0); HEMOGLOBIN 15.3 g/dl (13.5-17.5); LYMPH # 1.6 10^3/uL (1.5-5.0); LYMPH % 25.4 % (24.0-44.0); MEAN CORPUSCULAR HEMOGLOBIN 33.8 pg (27.0-33.0); MEAN CORPUSCULAR HGB CONC 33.6 g/dl (32.0-36.5); MEAN CORPUSCULAR VOLUME 100.9 fl (80.0-96.0); MONO # 0.5 10^3/uL (0.0-0.8); MONO % 8.5 % (2.0-8.0); NEUTROPHILS # 3.9 10^3/uL (1.5-8.5); PLATELET COUNT, AUTOMATED 200 10^3/uL (150-450); RED BLOOD COUNT 4.52 10^6/uL (4.30-6.10); WHITE BLOOD COUNT 6.3 10^3/uL (4.0-10.0)
[2023-11-11 14:44] LABS: CREATININE, URINE 198.5 MG/DL
[2023-11-11 14:48] LABS: PSA SCREENING 0.28 NG/ML (< 4.00)
[2023-11-11 14:51] LABS: FERRITIN 70.6 NG/ML (10.5-307.3)
[2023-11-11 14:54] LABS: ALBUMIN 3.9 G/DL (3.2-5.2); ALKALINE PHOSPHATASE 60 U/L (46-116); ALT/SGPT 26 U/L (7.0-40); AST/SGOT 25 U/L (<34); BILIRUBIN,TOTAL 0.6 MG/DL (0.3-1.2); BLOOD UREA NITROGEN 9 MG/DL (9-23); CALCIUM LEVEL 9.4 MG/DL (8.3-10.6); CARBON DIOXIDE LEVEL 29 MMOL/L (20-31); CHLORIDE LEVEL 110 MMOL/L (98-107); CREATININE FOR GFR 0.98 MG/DL (0.70-1.30); GLOMERULAR FILTRATION RATE > 60.0 (>49); GLUCOSE, FASTING 113 MG/DL (74-106); POTASSIUM SERUM 4.9 MMOL/L (3.5-5.1); SODIUM LEVEL 141 MMOL/L (136-145); TOTAL PROTEIN 6.8 G/DL (5.7-8.2)
== END ==
LOC: M LABDRWAD 13:00
PROVIDERS: ATTEND Family Medicine
DX: E11.9 Type 2 diabetes mellitus without complications (principal); Z12.5 Encounter for screening for malignant neoplasm of prostate; D75.1 Secondary polycythemia
CPT/HCPCS: 36415; 80053; 82043; 82728; 83036; 83525; 85025; G0103

== ENCOUNTER → 2023-12-28 | Outpatient (REF) | payer MEDICARE ==
[~2023-12-28] MED LIST changes: -ROSU20TA61 PO; +ROSU20TA86 PO
[2023-12-28 18:37] LABS: BLOOD UREA NITROGEN 10 MG/DL (9-23); CREATININE FOR GFR 0.97 MG/DL (0.70-1.30); GLOMERULAR FILTRATION RATE > 60.0 (>49)
== END ==
LOC: M LABDRWAD 17:30
PROVIDERS: ATTEND Physician Assistant
DX: M47.896 Other spondylosis, lumbar region (principal)

== ENCOUNTER → 2024-05-24 | Outpatient (CLI) | payer MEDICARE ==
[2024-05-24 14:19] LABS: BASO % 0.6 % (0.0-1.0); EOS # 0.2 10^3/uL (0.0-0.5); EOS % 2.7 % (0.0-3.0); HEMATOCRIT 47.7 % (42.0-52.0); HEMOGLOBIN 16.3 g/dl (13.5-17.5); LYMPH # 1.9 10^3/uL (1.5-5.0); LYMPH % 28.3 % (24.0-44.0); MEAN CORPUSCULAR HGB CONC 34.2 g/dl (32.0-36.5); MEAN CORPUSCULAR VOLUME 99.4 fl (80.0-96.0); MONO # 0.6 10^3/uL (0.0-0.8); MONO % 9.4 % (2.0-8.0); NEUTROPHILS # 3.9 10^3/uL (1.5-8.5); NEUTROPHILS % 58.7 % (36.0-66.0); PLATELET COUNT, AUTOMATED 171 10^3/uL (150-450); WHITE BLOOD COUNT 6.6 10^3/uL (4.0-10.0)
[2024-05-24 14:55] LABS: ALBUMIN 4.2 G/DL (3.2-5.2); ALKALINE PHOSPHATASE 60 U/L (40-129); ALT/SGPT 29 U/L (7.0-40); AST/SGOT 28 U/L (<34); BILIRUBIN,TOTAL 0.5 MG/DL (0.3-1.2); BLOOD UREA NITROGEN 12 MG/DL (9-23); CALCIUM LEVEL 9.3 MG/DL (8.3-10.6); CARBON DIOXIDE LEVEL 27 MMOL/L (20-31); CHLORIDE LEVEL 108 MMOL/L (98-107); CHOLESTEROL LEVEL 121 MG/DL (<200); CHOLESTEROL RISK RATIO 2.45 (<5); CREATININE FOR GFR 0.93 MG/DL (0.70-1.30); FERRITIN 63.5 NG/ML (10.5-307.3); GLOMERULAR FILTRATION RATE > 60.0 (>49); GLUCOSE, FASTING 128 MG/DL (74-106); HDL CHOLESTEROL 49.3 MG/DL (>40); LDL CHOLESTEROL 49.1 MG/DL (<100); NON-HDL-C 71.7 MG/DL; POTASSIUM SERUM 4.6 MMOL/L (3.5-5.1); SODIUM LEVEL 140 MMOL/L (136-145); TOTAL PROTEIN 7.4 G/DL (5.7-8.2); TRIGLYCERIDES LEVEL 113 MG/DL (<150)
== END ==
LOC: M PLALAB 09:39
PROVIDERS: ATTEND Family Medicine
DX: D75.1 Secondary polycythemia (principal); E11.9 Type 2 diabetes mellitus without complications

== ENCOUNTER → 2024-06-19 | Outpatient (CLI) | payer MEDICARE | LOC: M RAD 10:03 | PROVIDERS: ATTEND Family Medicine | DX: K76.0 Fatty (change of) liver, not elsewhere classified (principal) ==

== ENCOUNTER → 2024-12-10 | Outpatient (CLI) | payer MEDICARE ==
[2024-12-10 13:53] LABS: BASO # 0.1 10^3/uL (0.0-0.2); BASO % 0.9 % (0.0-1.0); EOS # 0.2 10^3/uL (0.0-0.5); EOS % 2.4 % (0.0-3.0); LYMPH # 2.2 10^3/uL (1.5-5.0); LYMPH % 28.1 % (24.0-44.0); MONO # 0.6 10^3/uL (0.0-0.8); MONO % 7.9 % (2.0-8.0); NEUTROPHILS # 4.7 10^3/uL (1.5-8.5); NEUTROPHILS % 60.4 % (36.0-66.0); PLATELET COUNT, AUTOMATED 219 10^3/uL (150-450)
[2024-12-10 14:02] LABS: ALT/SGPT 25.0 U/L (7.0-40); AST/SGOT 29.0 U/L (<34); CALCIUM LEVEL 9.6 MG/DL (8.3-10.6); CARBON DIOXIDE LEVEL 29.0 MMOL/L (20-31); CHLORIDE LEVEL 106.0 MMOL/L (98-107); CHOLESTEROL LEVEL 114.0 MG/DL (<200); CHOLESTEROL RISK RATIO 2.28 (<5); CREATININE FOR GFR 1.01 MG/DL (0.70-1.30); GLOMERULAR FILTRATION RATE 84.1 (>49); LDL CHOLESTEROL 28.8 MG/DL (<100); NON-HDL-C 64.2 MG/DL; POTASSIUM SERUM 5.0 MMOL/L (3.5-5.1); PSA SCREENING 0.46 NG/ML (< 4.00); SODIUM LEVEL 143.0 MMOL/L (136-145); TRIGLYCERIDES LEVEL 177.0 MG/DL (<150)
[2024-12-10 15:25] LABS: ESTIMATED AVERAGE GLUCOSE 134.0 MG/DL (60-110)
== END ==
LOC: M LABDRWAD 09:05
PROVIDERS: ATTEND Family Medicine
DX: E11.9 Type 2 diabetes mellitus without complications (principal); D75.1 Secondary polycythemia; Z12.5 Encounter for screening for malignant neoplasm of prostate
CPT/HCPCS: 36415; 80053; 80061; 82728; 83036; 83525; 85025; G0103

== ENCOUNTER → 2024-12-10 | Outpatient (REF) | payer MEDICARE | LOC: M SFHCPLAZ 08:52 | PROVIDERS: ATTEND Family Medicine | DX: Z53.9 Procedure and treatment not carried out, unspecified reason (principal) ==